=== PATIENT | female | born 1990 | race African-American/Black ===

== ENCOUNTER 2017-08-29 16:08 | Emergency (ER) | payer OTHER ==
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
[2017-08-29 16:13] VITALS: BP 113/62; PULSE 71; TEMP 98.2; BMI 24.9
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
[2017-08-29] MEDS ORDERED: ACETAMINOPHEN 500 MG TABLET (FP) ONE (19:33)
[2017-08-29] MEDS ORDERED: ACETAMINOPHEN 500 MG TABLET (FP) PO ONE (19:33)
== END 2017-08-29 19:42 | disposition home or self-care (01) ==
LOC: JERFT 16:08 → EDBD 16:08 → JERFT 19:42
DX: S39.82XA Other specified injuries of lower back, initial encounter (principal); Y04.8XXA Assault by other bodily force, initial encounter; Y93.89 Activity, other specified; Y92.89 Other specified places as the place of occurrence of the external cause; Y99.8 Other external cause status; Y07.9 Unspecified perpetrator of maltreatment and neglect
CPT/HCPCS: 72100-TC-FY; 84703; 99281-25